=== PATIENT | female | born 1980 | race Two or more races ===

== ENCOUNTER 2017-07-29 08:55 | Emergency (ER) | payer OTHER ==
[~2017-07-29] VITALS: Ht 162.6 cm; Wt 55.3 kg
[~2017-07-29 08:55] MED LIST: ATIVAN2 MG PO; CATAFLAM50 MG PO; PAXIL20 MG PO; SOMA250 MG PO
[2017-07-29] MEDS ORDERED: SYNTHROID100 MCG (09:08)
== END 2017-07-29 12:13 | disposition home or self-care (01) ==
LOC: ER 08:55
DX: M75.51 Bursitis of right shoulder (principal)

== ENCOUNTER 2017-08-05 18:40 | Emergency (ER) | payer OTHER ==
[~2017-08-05] VITALS: Ht 160 cm; Wt 54.9 kg
[~2017-08-05 18:40] MED LIST changes: +SYNTHROID100 MCG
== END 2017-08-05 22:37 | disposition home or self-care (01) ==
LOC: ER 18:40
DX: M71.111 Other infective bursitis, right shoulder (principal)

== ENCOUNTER 2017-09-23 06:37 | Day surgery (SDC) | payer OTHER | END 2017-09-23 16:35 | disposition home or self-care (01) | LOC: CIR.AMB 06:37 | DX: M65.811 Other synovitis and tenosynovitis, right shoulder (principal); M75.51 Bursitis of right shoulder; M19.011 Primary osteoarthritis, right shoulder ==

== ENCOUNTER 2018-03-02 10:41 | Emergency (ER) | payer OTHER ==
[~2018-03-02] VITALS: Ht 162.6 cm; Wt 52.2 kg
== END 2018-03-02 13:46 | disposition home or self-care (01) ==
LOC: ER 10:41
DX: S92.411A Displaced fracture of proximal phalanx of right great toe, initial encounter for closed fracture (principal); W22.8XXA Striking against or struck by other objects, initial encounter; Y93.89 Activity, other specified; Y92.098 Other place in other non-institutional residence as the place of occurrence of the external cause; Y99.8 Other external cause status

== ENCOUNTER 2018-03-05 12:33 | Outpatient (CLI) | payer OTHER | END 2018-03-05 12:52 | disposition home or self-care (01) | LOC: RAD 501 12:33 | DX: S92.511A Displaced fracture of proximal phalanx of right lesser toe(s), initial encounter for closed fracture (principal) ==

== ENCOUNTER 2018-04-08 17:16 | Outpatient (CLI) | payer OTHER | END 2018-04-08 17:26 | disposition home or self-care (01) | LOC: RAD 17:16 | DX: S92.511D Displaced fracture of proximal phalanx of right lesser toe(s), subsequent encounter for fracture with routine healing (principal) ==